=== PATIENT | female | born 1985 | race Two or more races ===

== ENCOUNTER 2018-05-13 13:00 | Outpatient (CLI) | payer OTHER | END 2018-05-13 23:59 | disposition home or self-care (01) | LOC: WOU 13:00 | PROVIDERS: ATTEND Podiatrist Foot & Ankle Surgery | DX: L60.0 Ingrowing nail (principal); R60.0 Localized edema; E03.9 Hypothyroidism, unspecified; Z79.899 Other long term (current) drug therapy | CPT/HCPCS: 11730; A6402; Z7610 ==